=== PATIENT | male | born 1970 | race Caucasian/White ===

== ENCOUNTER → 2024-03-22 | Outpatient (CLI) | payer BC ==
--- NOTE | 2024-03-22 08:13 | US ---
EXAMINATION TYPE: US abdomen complete DATE OF EXAM: 03/22/2024 COMPARISON: NONE CLINICAL INDICATION: Male, 53 years old with history of R10.813 RLQ PAIN x few months; Hx HTN TECHNIQUE: Multiple sonographic images of the abdomen are obtained. FINDINGS: EXAM MEASUREMENTS: Liver Length: 14.8 cm Gallbladder Wall: 0.2 cm CBD: 0.2 cm Spleen: 10.6 cm Right Kidney: 12.1 x 6.0 x 6.3 cm Left Kidney: 11.0 x 7.0 x 6.0 cm PMP NOTES: Pancreas: wnl Liver: wnl Gallbladder: wnl Evidence for sonographic Reynoso's sign: No CBD: wnl Spleen: wnl Right Kidney: wnl Left Kidney: wnl Upper IVC: wnl Abd Aorta: Obscured by overlying bowel gas The liver is homogenous. The intrahepatic portion of the IVC and proximal abdominal aorta are within normal limits. There is no evidence of cholelithiasis. Common bile duct is unremarkable. The visu alized portions of the pancreas are homogenous. The spleen is unremarkable. Kidneys are symmetric a nd free of hydronephrosis. No renal lesions are seen. IMPRESSION: No evidence for acute process.
== END | disposition home or self-care (01) ==
LOC: RADUSWWP 07:16
PROVIDERS: ATTEND Family Medicine
DX: R10.813 Right lower quadrant abdominal tenderness (principal); I10 Essential (primary) hypertension
CPT/HCPCS: 76700

== ENCOUNTER → 2024-05-31 | Outpatient (CLI) | payer BC ==
--- NOTE | 2024-05-31 12:12 | CA ---
Stress Echo Report Reinaldo Bernal Age: 53 Gender: M : 1970 Exam Date: 05/31/2024 10:27 Exam Location: [facility] [address] [facility] Ht (in): 70 Wt (lb): 246 Ordering Physician: Amaya Mon DO Referring Physician: Angelia Baxter Maintenance Of Way Foreman: SIMONA, Technologist Procedure CPT: Indication: R07.89 other chest pain ICD-9 Codes: Rhythm: Patient History: hypertension Cardiac Medications: Medications in past 24 hours: Contrast: Stress Results Protocol: Cabrera Total dose(mL): Exercise Duration (min:sec): 10:[address] Depression (mm): Angina Score: Aguirre Score: METS: 12.1 Resting HR: 69 Resting BP: 147 / 93 Peak HR: 167 Peak BP: 205 / 83 Max Predicted HR: 167 100 % Max Predicted HR Target HR: 142 Double Product: 91430 Stress Summary: BP Response: Reason for Termination: MAX EXERTION/TARGET HR Cardiac Symptoms: NO SYMPTOMS ECG Analysis Resting ECG: Normal sinus rhythm normal axis normal intervals Stress ECG: Patient exercised on Cabrera protocol for 11 minutes achieving 85% of predicted maximal heart rate without chest pain or diagnostic ST segment depression Arrhythmia: Echo Analysis Resting Echo: Left ventricular size wall motion systolic function Peak Echo Analysis: At peak exercise there was hypokinesis of the anteroseptal MEASUREMENTS (Male/Female) Normal Values CONCLUSIONS Excellent exercise tolerance Negative stress test by EKG criteria Abnormal stress echo showing exercise induced wall motion abnormality involving the anteroseptal Dr. Srinivas Bañuelos MD (Electronically Signed) Final Date: 31 May 2024 12:11
== END | disposition home or self-care (01) ==
LOC: RADNMMAIN 10:03
PROVIDERS: ATTEND Family Medicine
DX: R94.39 Abnormal result of other cardiovascular function study (principal)
CPT/HCPCS: 93351

== ENCOUNTER → 2024-06-15 | Outpatient (CLI) | payer BC | END | disposition home or self-care (01) | LOC: LABPRL 16:49 | PROVIDERS: ATTEND Student in an Organized Health Care Education/Training Program | DX: Z01.812 Encounter for preprocedural laboratory examination (principal); R06.02 Shortness of breath; R07.9 Chest pain, unspecified | CPT/HCPCS: 80051; 82565; 84520; 85025 ==

== ENCOUNTER 2024-06-21 07:00 | Day surgery (SDC) | payer BC ==
[2024-06-21] MEDS ORDERED: ASPIRIN 81 MG ONE ×2 (07:31)
[2024-06-21] MEDS ORDERED: MIDAZOLAM 2 MG/2 ML VIAL ONE ×3 (08:54→12:26)
[2024-06-21] MEDS ORDERED: VERAPAMIL 2.5 MG/ML 2 ML AMP ONE ×6 (08:55→12:02)
[2024-06-21] MEDS ORDERED: LIDOCAINE 1% INJ 10MG/ML (20 ML MDV) ONE ×5 (08:55→11:57)
[2024-06-21] MEDS ORDERED: fentaNYL (PF) 50 MCG/ML 2 ML AMP ONE ×5 (08:55→11:57)
[2024-06-21] MEDS ORDERED: SODIUM CHLORIDE 0.9% 1,000 ML BAG ONE ×6 (09:28→12:52)
[2024-06-21] MEDS ORDERED: CLOPIDOGREL 75 MG TAB ONE ×2 (09:34)
[2024-06-21] MEDS: IOPAMIDOL-370 100ML BTL INJ ONE ×3 (09:35→12:56)
[2024-06-21] MEDS ORDERED: HEPARIN SODIUM,PORCINE 10,000 UNIT/ML 1 ML VIAL ONE ×3 (09:57→12:52)
[2024-06-21] MEDS ORDERED: ACETAMINOPHEN TAB 325 MG TAB ONE ×2 (11:16)
[2024-06-21] MEDS ORDERED: VERAPAMIL 2.5 MG/ML 4 ML VIAL ONE (11:57)
[2024-06-21] MEDS ORDERED: IOPAMIDOL-370 100ML BTL ONE (12:26)
--- NOTE | 2024-08-19 15:56 | PTCA ---
PERCUTANEOUSTRANS CORORONARY ANGIOGRAPHY INDICATIONS: Mr. Bernal is a 53-year-old male, who has been seen by Dr. Davalos, has a history of hypertension, chronic tobacco use and hyperlipidemia. He has been complaining of episodes of chest discomfort, had an abnormal stress echocardiogram, underwent cardiac catheterization by Dr. 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 In view of that, recommendation regarding angioplasty and stenting, the procedure as well as the risks and the complications were discussed with the patient who is in full understanding and agreement. DESCRIPTION OF PROCEDURE: The patient was brought to the catholic priest in a fasting, semi-sedated state after receiving fentanyl and Benadryl. Using a guidewire exchange technique, the 6- [place] sheath in the right radial artery was exchanged to a new 6-[place] sheath. Following that, a 6-[place] CLS 3.5 guiding catheter into the system and after cannulating the left main, a 0.014 BMW J-wire was positioned in the distal left circumflex. Subsequently, a [employer] Eye IVUS catheter was introduced and images were obtained and revealed an eccentric noncalcified lesion with a distal lumen of 3.5 mm in diameter. At that point, the IVUS catheter was removed and a 3.5 x 23 mm Xience Skypoint stent was advanced and deployed at 16 atmospheres following that the balloon was removed and repeat IVUS was performed and subsequently 3.5 x 15 mm NC Trek balloon was advanced and one inflation in mid segment was performed at 12 atmospheres. Following that, the balloon was removed. Images were obtained, repeated. Those images revealed stable successful stenting. At that point, the guiding catheter, the balloon and the guidewire removed. The sheath was removed. Hemostasis was obtained with deployment of a TR band. There was no immediate complication. The patient was returned to his room in stable condition. Of note, the patient had chest discomfort during the inflation that resolved at the end of the procedure. He received a total of 8000 units of intravenous heparin. His ACT was followed. He has received an oral loading dose of clopidogrel. RESULTS: Successful stenting of the mid left circumflex with reduction of stenosis from 80% to less than 5% with IVUS imaging and DONATO-3 flow. RECOMMENDATIONS: The patient will be continued on aspirin, clopidogrel for 6 months without any interruption as well as aggressive coronary risk modification with the attempt to maintain LDL below 70 mg/dL. He was instructed on smoking cessation and referred to [place] quitline. Those findings and recommendations were discussed with the patient and his family, and they are in full understanding and agreement. Duration of sedation is 42 minutes. STEFNA / BEAUN: [id number] / MTDD
== END 2024-06-21 17:15 | disposition home or self-care (01) ==
LOC: CATHCVL 07:00
PROVIDERS: ATTEND Student in an Organized Health Care Education/Training Program
DX: R06.02 Shortness of breath (principal); I10 Essential (primary) hypertension; E78.5 Hyperlipidemia, unspecified; F17.210 Nicotine dependence, cigarettes, uncomplicated; Z88.0 Allergy status to penicillin; Z79.899 Other long term (current) drug therapy
CPT/HCPCS: 92978; 93458